=== PATIENT | female | born 1975 | race Caucasian/White ===

== ENCOUNTER 2024-02-26 13:33 | Emergency (ER) | payer OTHER, SELFPAY ==
[2024-02-26 13:36] VITALS: BP 159/89; PULSE 93; RESP 18; TEMP 36.3; O2SAT 99; BMI 40.1
--- NOTE | 2024-02-26 13:58 | EX.ED.DYSGE1 ---
HPI History of Present Illness Chief Complaint: Lower Extremity Injury Detail of Chief Complaint: Patient has 2 complaints 1 redness tender distal medial right thigh and derek Informant: patient Onset/Context/Timing Onset: Weeks Context: Sudden Onset Timing: Continuous Quality: Tender red area and pain posterior right thigh Location: Tender red area is the distal medial right thigh Current Severity: Mild Maximum Severity: Moderate Worsened by: Palpation and movement respectfully Relieved by: Nothing and rest Associated Symptoms Associated Symptoms: No cardiac, respiratory or neurovascular symptoms Narrative Narrative: Patient is a 49-year-old woman. She has a remote history of DVT and superficial phlebitis. She presents because of redness, tenderness distal medial right thigh. She denies shortness of breath, chest pain, dyspnea on exertion She denies swelling, asymmetry or discoloration of the leg other than the localized area of redness. She does complain of pain in the distribution of the hamstring. Movement causes the pain posteriorly to get worse. She has not done anything for either 1. Prior similar symptoms: Yes Recent Illness/Hospitalization: No PFSH PFSH Medical History (Updated 02/26/24 @ 14:[address] Declan Lundberg MD) DVT (deep venous thrombosis) Home Medications ?Medication ?Instructions ?Recorded ?Last Taken ?Type NK 02/26/24 Unknown History Allergy/AdvReac Type Severity Reaction Status Date / Time No Known Allergies Allergy Verified 02/26/24 13:34 Social History Smoking Status: Never smoker ROS ROS ED Constitutional Constitutional ED: Denies chills, fever(s), subjective or sweats Cardiovascular Cardiovascular: Denies chest pain, palpitations or racing heartbeat Respiratory/Chest Respiratory/Chest: Denies cough, dyspnea or dyspnea on exertion Musculoskeletal Musculoskeletal: Denies arthralgias, back pain or myalgias Integumentary Reports other Details: Varicose veins right lower leg and erythema medial aspect of the distal right thigh Neurologic Neurologic: Denies paresthesias or weakness Hematologic/Lymphatic Hematologic/Lymphatic: Reports systems reviewed and no addt'l complaints, except as documented EXAM Physical Exam Const Vital Signs: 02/26/24 13:36 Temperature 97.3 F L Temperature Source Temporal Pulse Rate 93 Respiratory Rate 18 Blood Pressure 159/89 H Blood Pressure Mean 112 Pulse Ox 99 Oxygen Delivery Method Room Air Positive well nourished and well developed General Appearance ED: well developed and NAD; Negative for cyanotic or diaphoretic HEENT Reports moist mucous membranes HEENT Narrative: And is atraumatic and normocephalic. Ears are normal. Nares are patent. Eyes PERRL and EOMs intact bilaterally General Eye ED: Yes scleral icterus Resp normal respiratory effort Cardio regular rate and regular rhythm Extremity Negative for normal to inspection Extremity Narrative: Patient has varicosities medial aspect of the right thigh. There is erythema and palpable cord consistent with superficial phlebitis. The tenderness posteriorly is made worse with having the patient flex her knee against resistance. There is no asymmetry of the lower extremities, discoloration, pain along distribution deep venous system. Neuro oriented x3, CN's II-XII intact bilaterally and no sensory deficits noted Sensorium / Orientation: alert Psych mental status grossly normal Skin no rashes or lesions noted, no wounds and skin turgor normal MDM MDM MDM Narrative Medical decision making narrative: History and physical exam is consistent with a superficial phlebitis. With regards to the posterior thigh pain this is consistent with muscle strain. Most likely the hamstring. Patient was informed of my opinion. She is excepting. Will discharge to home with appropriate home-going instructions. In my opinion there is no indication for venous duplex study or imaging of the thigh since the posterior thigh pain is most skeletal etiology. History & Record Review Additional record(s) reviewed:: Prior outpatient record and Prior labs Discharge Plan Triage Chief Complaint: Lower Extremity Injury ED Provider: Declan Lundberg Dx/Rx/DC Orders Clinical Impression: Superficial thrombophlebitis, Left hamstring muscle strain, Elevated blood pressure reading without diagnosis of hypertension, Body mass index (BMI) of 40.0 to 49.9 Instructions: ED Hypertension, To Be Confirmed, ED Thrombophlebitis, Superficial, ED Muscle Strain, Extremity Prescriptions: No Action NK Primary Care Provider: Ravin Aguero Referrals: Ravin Aguero MD [Primary Care Provider] - As Needed Print Language: [place] Disposition Disposition: Home, Self Care
== END 2024-02-26 14:19 | disposition home or self-care (01) ==
PROVIDERS: Emergency Provider Emergency Medicine; PCP Internal Medicine; Visit Provider Emergency Medicine
DX: I80.01 Phlebitis and thrombophlebitis of superficial vessels of right lower extremity (principal); S76.312A Strain of muscle, fascia and tendon of the posterior muscle group at thigh level, left thigh, initial encounter; X58.XXXA Exposure to other specified factors, initial encounter; R03.0 Elevated blood-pressure reading, without diagnosis of hypertension; Z86.718 Personal history of other venous thrombosis and embolism
CPT/HCPCS: 99282